=== PATIENT | female | born 1960 | race Hispanic/Latino ===

== ENCOUNTER 2019-01-27 16:29 | Emergency (ER) | payer OTHER, SELFPAY | END 2019-01-27 17:04 | disposition home or self-care (01) | LOC: ERS 16:29 | DX: K04.7 Periapical abscess without sinus (principal); K02.9 Dental caries, unspecified; F17.210 Nicotine dependence, cigarettes, uncomplicated | CPT/HCPCS: 99283 ==

== ENCOUNTER 2020-01-19 14:04 | Emergency (ER) | payer SELFPAY ==
[2020-01-19] MEDS ORDERED: HYDROcodone/Acetaminophen 5/325 mg Tablet ONE (17:05)
== END 2020-01-19 17:12 | disposition home or self-care (01) ==
LOC: ERS 14:04
DX: N61.0 Mastitis without abscess (principal); J43.9 Emphysema, unspecified; F17.210 Nicotine dependence, cigarettes, uncomplicated; Z79.899 Other long term (current) drug therapy
CPT/HCPCS: 99283

== ENCOUNTER 2020-08-05 04:14 | Inpatient (IN) | payer SELFPAY ==
[2020-08-05 04:47] LABS: Prothrombin Time 13.6 sec (12.0-14.7)
[2020-08-05] MEDS ORDERED: Nitroglycerin 100MG/250ML BOT 250 ML ONE (05:00)
[2020-08-05] MEDS ORDERED: Verapamil 5 MG/2 ML VIAL ONE (05:01)
[2020-08-05] MEDS ORDERED: Adenosine 6 MG/2 ML VIAL ONE (05:01)
[2020-08-05] MEDS ORDERED: Atropine Sulfate 1 mg/10 ml Syringe ONE (05:07)
[2020-08-05] MEDS ORDERED: Ondansetron PF 4 MG/2 ML Vial ONE (05:07)
[2020-08-05] MEDS ORDERED: Clopidogrel Bisulfate 300 MG TAB ONE (05:08)
[2020-08-05 05:09] LABS: #Basophils 0.1 thou/uL (0.0-0.2); #Eosinphils 0.2 thou/uL (0.0-0.7); #Lymphocytes 3.1 thou/uL (1.20-3.40); #Monocytes 0.8 thou/uL (0.11-0.59); #Neutrophils 6.9 thou/uL (1.40-6.50); %Basophils 1.3 % (0.0-1.0); %Eosinophils 1.8 % (0.0-10.0); %Monocytes 7.1 % (0.0-10.0); %Neutrophils 61.8 % (42.0-75.0); Burr Cells MODERATE= 6-15 cells (100X) (0-1/hpf); MDiff Complete? YES; Mean Corpuscular HGB CONC 33.5 g/dL (32.0-36.0); Mean Corpuscular Hemoglobin 32.7 pg (27.0-31.0); Mean Corpuscular Volume 97.4 fL (78.0-98.0); Platelet Count 143 thou/uL (130-400); Red Blood Cell (RBC) Count 5.22 mill/uL (4.20-5.40); White Blood Cell (WBC) Count 11.2 thou/uL (4.8-10.8)
[2020-08-05 05:21] LABS: PTT 196.3 sec (22.9-36.1)
[2020-08-05 05:34] LABS: ALT (SGPT) 112 U/L (8-55); AST (SGOT) 57 U/L (5-34); Albumin 3.8 g/dL (3.5-5.0); Alkaline Phosphatase 123 U/L (40-110); Anion Gap 19 mmol/L (10-20); BUN (Urea Nitrogen) 19 mg/dL (9.8-20.1); Bilirubin, Total 0.3 mg/dL (0.2-1.2); CK (CPK) 28 U/L (29-168); Calc. Creatinine Clearance 0 mL/min (70-130); Calcium 8.6 mg/dL (7.8-10.44); Carbon Dioxide 14 mmol/L (22-29); Chloride 109 mmol/L (98-107); Globulin 3.6 g/dL (2.4-3.5); Glucose 123 mg/dL (70-105); Potassium 3.8 mmol/L (3.5-5.1); Protein, Total 7.4 g/dL (6.0-8.3); Sodium 138 mmol/L (136-145)
[2020-08-05] MEDS ORDERED: Zolpidem Tartrate 5 MG TAB PO PRN (05:42)
[2020-08-05] MEDS ORDERED: Milk Of Magnesia 30 ML UDCUP PO PRN (05:42)
[2020-08-05] MEDS ORDERED: Acetaminophen/Codeine 30-300mg Tablet PO PRN (05:42)
[2020-08-05] MEDS ORDERED: Morphine 2 MG/ML VIAL SLOW IVP PRN (05:42)
[2020-08-05] MEDS ORDERED: Sodium Chloride 0.9% 1,000 ML IV SCH (05:45)
[2020-08-05 05:51] LABS: SARS-CoV-2 NAA Rapid Test Not Detected (NotDetected)
[2020-08-05 07:23] LABS: CKMB 18.3 ng/mL (0-6.6)
[2020-08-05 07:59] LABS: Troponin I 1.193 ng/mL (< 0.028)
--- NOTE | 2020-08-05 08:02 | RAD ---
RADIOGRAPH CHEST 1 VIEW: DATE: 08/05/2020 TIME: 4:25 AM HISTORY: 59-year-old female with dyspnea COMPARISON: 12/12/2015 FINDINGS: Currently no left support lines. Diffuse bilateral pulmonary vascular dilation, similar to prior. No consolidation or pneumothorax. The lateral costophrenic angles are sharp. Defibrillation paddle overlies right lung. IMPRESSION: 1) pulmonary venous congestion 2) no pneumothorax
[2020-08-05] MEDS ORDERED: Iopamidol 370 76% 100 ML VIAL ONE (11:52)
[2020-08-05] MEDS ORDERED: Iopamidol 370 76% 50 ML VIAL FS ONE (11:52)
[2020-08-05] MEDS: Lisinopril 2.5 MG TAB PO SCH (15:23)
[2020-08-05] MEDS: Clopidogrel Bisulfate 75 MG TAB PO SCH (15:24)
[2020-08-05] MEDS: Aspirin Chewable 81 MG TAB PO SCH (15:24)
[2020-08-05 15:48] VITALS: BMI 32.7
--- NOTE | 2020-08-05 17:54 | CON ---
DATE OF CONSULTATION: CHIEF COMPLAINT: Acute NV. HISTORY OF PRESENT ILLNESS: Ms. Magdaleno is a 59-year-old woman who recently presented to emergency room with acute onset chest pain. She states it occurred few hours prior to presenting to the emergency room. She was found to have ST-segment elevation noted inferiorly. PAST MEDICAL HISTORY: Tobacco abuse. No history of diabetes mellitus, hypertension, hyperlipidemia. Vascular headaches, nephrolithiasis, cholecystectomy, BTL, and a history positive for CAD. REVIEW OF SYSTEMS: A 10-point review of systems is reviewed as above, otherwise negative. PHYSICAL EXAMINATION: GENERAL: Patient is a pleasant woman who is in no acute distress. The patient appears their stated age. VITAL SIGNS: Blood pressure 118/70, pulse 80, respirations 20. NEUROLOGIC: The patient is alert and oriented x3 with no focal neurologic deficits. HEENT: Sclerae without icterus. Mouth has moist mucous membranes with normal pallor. NECK: No JVD. Carotid upstroke brisk. No bruits bilaterally. LUNGS: Clear to auscultation with unlabored respirations. BACK: No scoliosis or kyphosis. CARDIAC: Regular rate and rhythm with normal S1 and S2. No S3 or S4 noted. No significant rubs, murmurs, thrills, or gallops noted throughout the precordium. PMI is not displaced. There is no parasternal heave. ABDOMEN: Soft, nontender, nondistended. No peritoneal signs present. No hepatosplenomegaly. No abnormal striae. EXTREMITIES: 2+ femoral and 2+ dorsalis pedis pulses. No cyanosis, clubbing, or edema. SKIN: No gross abnormalities. PERTINENT LABORATORY DATA: Hemoglobin 17, hematocrit 50.8, platelet count of 143. IMPRESSION: Acute myocardial infarction. RECOMMENDATIONS: At this point, we would recommend urgent coronary angiography plus PCI. I discussed the procedure in full detail with Ms. Magdaleno. Risks include, but not limited to the following: , stroke, NV, need for emergency surgery, loss of limb, bleeding, and infection, as well as a reaction to the dye causing kidney failure and needing long-term dialysis. I also discussed the risks of PCI to include all of the above including coronary dissection and perforation in addition to acute stent thrombosis and restenosis. All questions about the procedure were answered. Given the above, the patient agreed to proceed with coronary angiography and possible PCI. All questions were answered. I also discussed drug coated versus nondrug coated stent placement. There were no contraindications to proceed if needed. Further recommendations will be pending the above. Job ID: [id number]
[2020-08-06 04:41] LABS: #Eosinphils 0.2 thou/uL (0.0-0.7); #Lymphocytes 2.6 thou/uL (1.20-3.40); #Monocytes 0.7 thou/uL (0.11-0.59); #Neutrophils 6.7 thou/uL (1.40-6.50); %Basophils 0.4 % (0.0-1.0); %Eosinophils 1.5 % (0.0-10.0); %Lymphocytes 25.3 % (21.0-51.0); %Neutrophils 65.9 % (42.0-75.0); Hemoglobin 15.1 g/dL (12.0-16.0); Mean Corpuscular HGB CONC 32.1 g/dL (32.0-36.0); Mean Corpuscular Hemoglobin 30.9 pg (27.0-31.0); Mean Corpuscular Volume 96.2 fL (78.0-98.0); Mean Platelet Volume 10.4 fL (7.4-10.4); Platelet Count 151 thou/uL (130-400); RBC Distribution Width 12.8 % (11.5-14.5); Red Blood Cell (RBC) Count 4.88 mill/uL (4.20-5.40); White Blood Cell (WBC) Count 10.1 thou/uL (4.8-10.8)
[2020-08-06 05:47] LABS: ALT (SGPT) 90 U/L (8-55); AST (SGOT) 68 U/L (5-34); Albumin 3.5 g/dL (3.5-5.0); Alkaline Phosphatase 116 U/L (40-110); Anion Gap 15 mmol/L (10-20); BUN (Urea Nitrogen) 17 mg/dL (9.8-20.1); Bilirubin, Total 0.6 mg/dL (0.2-1.2); Calc. Creatinine Clearance 110 mL/min (70-130); Calcium 8.5 mg/dL (7.8-10.44); Carbon Dioxide 17 mmol/L (22-29); Chloride 112 mmol/L (98-107); Globulin 3.4 g/dL (2.4-3.5); Glucose 78 mg/dL (70-105); Potassium 3.9 mmol/L (3.5-5.1); Protein, Total 6.9 g/dL (6.0-8.3); Sodium 140 mmol/L (136-145)
[2020-08-06 07:51] VITALS: TEMP 98.6
[2020-08-06] MEDS ORDERED: Carvedilol 3.125 MG TAB PO SCH (09:00)
[2020-08-06] MEDS ORDERED: Carvedilol 6.25 MG TAB PO SCH (09:00)
--- NOTE | 2020-08-06 09:26 | PDOC.CPN ---
- Subjective Date: 08/06/20 Time: 08:45 Interval history: No overnight events. Patient stable without complaints. Tele reviewed. - Review of Systems General: denies: fever/chills, weight/appetite/sleep changes, night sweats, fatigue Respiratory: denies: cough, congestion, shortness of breath, exercise intolerance Cardiovascular: denies: chest pain, palpitation, edema, paroxysmal nocturnal dyspnea, orthopnea Gastrointestinal: denies: nausea, vomiting, diarrhea, constipation, abd pain, GI bleeding Musculoskeletal: denies: pain, tenderness, stiffness, swelling, arthritis/arthralgias Neurological: denies: numbness, syncope, seizure, weakness - Objective Allergies/Adverse Reactions: Allergies Allergy/AdvReac Type Severity Reaction Status Date / Time No Known Drug Allergies Allergy Verified 08/05/20 15:53 Visit Medications: Current Medications Acetaminophen/Codeine Phosphate (Acetaminophen/Codeine 30-300mg Tablet) 1 tab PO Q4H PRN PRN Reason: Mild Pain (1-3) Aspirin (Aspirin Chewable 81 Mg Tab) 81 mg PO DAILY [facility] Last Admin: 08/05/20 15:24 Dose: Not Given Documented by: Atorvastatin Calcium (Atorvastatin Calcium 20 Mg Tab) 20 mg PO HS [facility] Carvedilol (Carvedilol 3.125 Mg Tab) 3.125 mg PO BID [facility] Clopidogrel Bisulfate (Clopidogrel Bisulfate 75 Mg Tab) 75 mg PO DAILY [facility] Last Admin: 08/05/20 15:24 Dose: Not Given Documented by: Influenza Virus Vaccine Quadrival (Flu Vacc [id number](6mos Up)/Pf 60 Mcg/0.5 Ml Syringe) 60 mcg IM .ONCE ONE Stop: 08/06/20 16:16 Lisinopril (Lisinopril 2.5 Mg Tab) 2.5 mg PO DAILY [facility] Last Admin: 08/05/20 15:23 Dose: Not Given Documented by: Magnesium Hydroxide (Milk Of Magnesia 30 Ml Udcup) 30 ml PO Q12H PRN PRN Reason: Constipation Morphine Sulfate (Morphine 2 Mg/Ml Vial) 2 mg SLOW IVP Q4H PRN PRN Reason: Moderate Chest Pain (4-6) Sodium Chloride (Flush - Normal Saline 10 Ml Syringe) 10 ml IVF Q12HR [place] Sodium Chloride (Flush - Normal Saline 10 Ml Syringe) 10 ml IVF PRN PRN PRN Reason: Saline Flush Zolpidem Tartrate (Zolpidem Tartrate 5 Mg Tab) 5 mg PO HSPRN PRN PRN Reason: Insomnia Vital Signs & Weight: Vital Signs Temp Pulse Resp BP Pulse Ox 08/06/20 07:47 98.6 F 81 16 122/66 94 L 08/06/20 04:00 98.8 F 86 18 118/58 L 95 08/06/20 00:00 79 Weight 179 lb - Physical Exam General: alert & oriented x3, appears well, no apparent distress HEENT: mucus membranes moist Neck: supple neck Cardiac: regular rate and rhythm, no murmur Lungs: normal breath sounds, no wheeze, rales, rhonchi Neuro: grossly intact Abdomen: soft, non-tender Extremities: no edema Skin: clear Musculoskeletal: no pain - Labs Result Diagrams: 08/06/20 04:12 08/06/20 04:12 Troponin/CKMB CK-MB (CK-2) 18.3 ng/mL (0-6.6) H* 08/05/20 06:37 Troponin I 7.910 ng/mL (< 0.028) H* 08/05/20 13:44 - Assessment/Plan Assessment/Plan: 1. s/p inferior STEMI 2. CAD s/p PCI/TE - RCA 3. Mild ICMO (EF 40% on LVgram) Will add statin. Continue walking. Check lipids and repeat trop to trend. ECHO today. Possible discharge later this afternoon if she remains stable.
[2020-08-06] MEDS: Lisinopril 2.5 MG TAB PO SCH (09:46)
[2020-08-06] MEDS: Clopidogrel Bisulfate 75 MG TAB PO SCH (09:47)
[2020-08-06] MEDS: Aspirin Chewable 81 MG TAB PO SCH (09:47)
[2020-08-06 12:06] LABS: Cardiac Risk 5.8 (Less than 4.5)
[2020-08-06 12:24] LABS: Critical Call Chem Troponin I RESULT DECREASING
[2020-08-06 12:25] LABS: Troponin I 4.859 ng/mL (< 0.028)
[2020-08-06] MEDS ORDERED: FLU VACC QS2020-21(6MOS UP)/PF 60 MCG/0.5 ML SYRINGE IM ONE (16:15)
[2020-08-06 16:53] VITALS: BP 137/74
--- NOTE | 2020-08-06 17:53 | DIS ---
DATE OF ADMISSION: 08/05/2020 DATE OF DISCHARGE: 08/06/2020 PRIMARY DIAGNOSIS: Acute myocardial infarction. PROCEDURE PERFORMED: Coronary angiography with stent placement to the distal right coronary artery. HOSPITAL COURSE: Ms. Magdaleno is a very pleasant 59-year-old woman, who recently presented with acute onset chest pain. She was found to have ST-segment elevation. She underwent urgent coronary angiography and was found to have a 99% stenosis of the distal right coronary artery into the RPL and PDA. She underwent successful stent placement into the PDA. Prior to stent implantation, the ostium of the RPL was ballooned. She did very well in the post procedure. No recurrent episodes of chest pain. On the second day, the patient was ambulating without assistance. No recurrent episodes of chest pain. DISCHARGE MEDICATIONS: Include; 1. Aspirin 81 q.a.m. 2. Plavix 75 daily. 3. Coreg 3.125 one p.o. b.i.d. 4. Lisinopril 2.5 daily. 5. Lipitor 20 mg daily. FOLLOWUP: Follow up with Dr. Nye in 1 to 2 weeks. CONDITION ON DISCHARGE: Stable. Job ID: [id number]
[2020-08-06] MEDS ORDERED: Atorvastatin Calcium 20 MG TAB PO SCH (21:00)
== END 2020-08-06 18:27 | disposition home or self-care (01) | DRG 247 ==
LOC: ERS 04:14 → CCL 04:40 → 2NO 15:55
PROVIDERS: ADMIT Internal Medicine Cardiovascular Disease; ATTEND Internal Medicine Cardiovascular Disease
PROC: 027034Z Dilation of Coronary Artery, One Artery with Drug-eluting Intraluminal Device, Percutaneous Approach (ICD-10-PCS; principal; 2020-08-05)
PROC: 4A023N7 Measurement of Cardiac Sampling and Pressure, Left Heart, Percutaneous Approach (ICD-10-PCS; 2020-08-05)
PROC: B2111ZZ Fluoroscopy of Multiple Coronary Arteries using Low Osmolar Contrast (ICD-10-PCS; 2020-08-05)
PROC: B2151ZZ Fluoroscopy of Left Heart using Low Osmolar Contrast (ICD-10-PCS; 2020-08-05)
DX: I21.19 ST elevation (STEMI) myocardial infarction involving other coronary artery of inferior wall (principal); Z20.822 Contact with and (suspected) exposure to COVID-19; Z28.21 Immunization not carried out because of patient refusal; I25.10 Atherosclerotic heart disease of native coronary artery without angina pectoris; J43.9 Emphysema, unspecified; F17.210 Nicotine dependence, cigarettes, uncomplicated; I25.5 Ischemic cardiomyopathy; Z90.49 Acquired absence of other specified parts of digestive tract; Z98.51 Tubal ligation status
CPT/HCPCS: 36415; 71045; 76942; 80053; 80061; 82550; 82553; 84484; 85025; 85347; 85610; 85730; 86850; 86900; 86901; 92928; 93005; 93010; 93306; 93458; 93798; C1874; C9600; J0153; J0461; J1644; J2405; Q9967; U0002

== ENCOUNTER 2021-06-19 19:53 | Emergency (ER) | payer SELFPAY | END 2021-06-19 21:09 | disposition home or self-care (01) | LOC: ERS 19:53 | DX: K04.7 Periapical abscess without sinus (principal); J45.909 Unspecified asthma, uncomplicated; J43.9 Emphysema, unspecified; F17.210 Nicotine dependence, cigarettes, uncomplicated | CPT/HCPCS: 99282 ==

== ENCOUNTER 2021-07-11 10:28 | Emergency (ER) | payer SELFPAY ==
[2021-07-11] MEDS ORDERED: Ketorolac Tromethamine 30 MG/ML VIAL ONE (11:17)
[2021-07-11 11:45] LABS: #Basophils 0.1 thou/uL (0.0-0.2); #Eosinphils 0.2 thou/uL (0.0-0.7); #Monocytes 0.7 thou/uL (0.11-0.59); #Neutrophils 5.9 thou/uL (1.40-6.50); %Basophils 1.2 % (0.0-1.0); %Eosinophils 2.4 % (0.0-10.0); %Lymphocytes 22.3 % (21.0-51.0); %Monocytes 7.4 % (0.0-10.0); %Neutrophils 66.8 % (42.0-75.0); Hemoglobin 16.4 g/dL (12.0-16.0); Mean Corpuscular HGB CONC 34.1 g/dL (32.0-36.0); Mean Corpuscular Hemoglobin 32.8 pg (27.0-31.0); Mean Corpuscular Volume 96.1 fL (78.0-98.0); Mean Platelet Volume 9.6 fL (7.4-10.4); Platelet Count 191 thou/uL (130-400); RBC Distribution Width 12.9 % (11.5-14.5); Red Blood Cell (RBC) Count 5.01 mill/uL (4.20-5.40); White Blood Cell (WBC) Count 8.8 thou/uL (4.8-10.8)
[2021-07-11 12:10] LABS: ALT (SGPT) 33 U/L (8-55); AST (SGOT) 22 U/L (5-34); Albumin 3.9 g/dL (3.4-4.8); Alkaline Phosphatase 132 U/L (40-110); Anion Gap 13 mmol/L (10-20); BUN (Urea Nitrogen) 20 mg/dL (9.8-20.1); Bilirubin, Total 0.6 mg/dL (0.2-1.2); Calc. Creatinine Clearance 0 mL/min (70-130); Calcium 10.2 mg/dL (7.8-10.44); Carbon Dioxide 20 mmol/L (23-31); Chloride 110 mmol/L (98-107); Globulin 3.7 g/dL (2.4-3.5); Glucose 104 mg/dL (80-115); Potassium 3.6 mmol/L (3.5-5.1); Protein, Total 7.6 g/dL (5.8-8.1); Sodium 139 mmol/L (136-145)
[2021-07-11 13:37] LABS: Bilirubin Negative (Negative); Blood, Urine Negative (Negative); Clarity Turbid (Clear); Glucose, Urine (Dipstick) Normal (Negative); Ketone, Urine Negative (Negative); Leukocyte Negative Leu/uL (Negative); Nitrite Negative (Negative); Protein, Urine (Dipstick) Negative (Neg-Trace); Specific Gravity, Urine 1.017 (1.002-1.036); Urobilinogen Normal mg/dL (Less than 2)
== END 2021-07-11 15:21 | disposition home or self-care (01) ==
LOC: ERS 10:28
DX: M54.50 Low back pain, unspecified (principal); N83.8 Other noninflammatory disorders of ovary, fallopian tube and broad ligament; J43.9 Emphysema, unspecified; F17.210 Nicotine dependence, cigarettes, uncomplicated
CPT/HCPCS: 74176; 80053; 81003; 85025; 96374; J1885

== ENCOUNTER 2022-07-24 17:48 | Emergency (ER) | payer SELFPAY ==
[2022-07-24 18:30] LABS: #Eosinphils 0.1 thou/uL (0.0-0.7); #Lymphocytes 1.6 thou/uL (1.20-3.40); #Neutrophils 7.5 thou/uL (1.40-6.50); %Basophils 0.4 % (0.0-1.0); %Eosinophils 1.2 % (0.0-10.0); %Lymphocytes 15.7 % (21.0-51.0); %Monocytes 9.5 % (0.0-10.0); %Neutrophils 73.3 % (42.0-75.0); Hemoglobin 16.2 g/dL (12.0-16.0); Mean Corpuscular HGB CONC 34.3 g/dL (32.0-36.0); Mean Corpuscular Hemoglobin 33.9 pg (27.0-31.0); Mean Corpuscular Volume 98.7 fl (78.0-98.0); Platelet Count 172 10x3/uL (130-400); RBC Distribution Width 12.9 % (11.5-14.5); Red Blood Cell (RBC) Count 4.79 mill/uL (4.20-5.40); White Blood Cell (WBC) Count 10.3 10x3/uL (4.8-10.8)
[2022-07-24] MEDS ORDERED: Ketorolac Tromethamine 30 MG/ML VIAL ONE (18:47)
[2022-07-24 18:50] LABS: ALT (SGPT) 21 U/L (8-55); AST (SGOT) 17 U/L (5-34); Albumin 3.9 g/dL (3.4-4.8); Alkaline Phosphatase 127 U/L (40-110); Anion Gap 14 mmol/L (10-20); BUN (Urea Nitrogen) 13 mg/dL (9.8-20.1); Bilirubin, Total 0.6 mg/dL (0.2-1.2); Calc. Creatinine Clearance 0 mL/min (70-130); Calcium 9.6 mg/dL (7.8-10.44); Carbon Dioxide 20 mmol/L (23-31); Chloride 111 mmol/L (98-107); Estimated GFR 93; Globulin 3.2 g/dL (2.4-3.5); Glucose 78 mg/dL (80-115); Potassium 3.7 mmol/L (3.5-5.1); Protein, Total 7.1 g/dL (5.8-8.1); Sodium 141 mmol/L (136-145)
[2022-07-24 20:12] LABS: Bacteria/HPF 3+ HPF (None Seen); Bilirubin Negative (Negative); Blood, Urine 3+ (Negative); Clarity Turbid (Clear); Glucose, Urine (Dipstick) Normal (Negative); Ketone, Urine Negative (Negative); Leukocyte 75 Leu/uL (Negative); Nitrite Negative (Negative); Protein, Urine (Dipstick) 70 mg/dL (Neg-Trace); RBC/HPF Greater than 50 HPF (0-3); Specific Gravity, Urine 1.009 (1.002-1.036); Urobilinogen Normal mg/dL (Less than 2); WBC/HPF 21-50 HPF (0-3); pH, Urine 6.5 (5.0-9.0)
== END 2022-07-24 20:47 | disposition home or self-care (01) ==
LOC: ERS 17:48
DX: R31.9 Hematuria, unspecified (principal); N83.8 Other noninflammatory disorders of ovary, fallopian tube and broad ligament; N39.0 Urinary tract infection, site not specified; F17.210 Nicotine dependence, cigarettes, uncomplicated
CPT/HCPCS: 36415; 74176; 80053; 81003; 81015; 85025; 96372; J1885

== ENCOUNTER 2022-08-11 19:31 | Emergency (ER) | payer SELFPAY ==
[2022-08-11] MEDS ORDERED: methylPREDNISolone Sod Succ/PF 125 MG/2 ML VIAL ONE (20:03)
[2022-08-11] MEDS ORDERED: Aspirin 325 MG TAB ONE (20:03)
[2022-08-11] MEDS ORDERED: Ipratropium/Albuterol 3 ML NEB ONE (20:03)
[2022-08-11 20:33] LABS: #Eosinphils 0.1 thou/uL (0.0-0.7); #Lymphocytes 1.8 thou/uL (1.20-3.40); #Monocytes 0.8 thou/uL (0.11-0.59); #Neutrophils 6.2 thou/uL (1.40-6.50); %Basophils 0.4 % (0.0-1.0); %Eosinophils 1.6 % (0.0-10.0); %Lymphocytes 20.1 % (21.0-51.0); %Monocytes 9.3 % (0.0-10.0); %Neutrophils 68.6 % (42.0-75.0); Hemoglobin 15.8 g/dL (12.0-16.0); Mean Corpuscular HGB CONC 34.1 g/dL (32.0-36.0); Mean Corpuscular Hemoglobin 33.7 pg (27.0-31.0); Mean Platelet Volume 9.8 fL (7.4-10.4); Platelet Count 185 10x3/uL (130-400); RBC Distribution Width 12.9 % (11.5-14.5); White Blood Cell (WBC) Count 9.1 10x3/uL (4.8-10.8)
[2022-08-11 20:56] LABS: ALT (SGPT) 27 U/L (8-55); AST (SGOT) 19 U/L (5-34); Albumin 3.9 g/dL (3.4-4.8); Alkaline Phosphatase 132 U/L (40-110); Anion Gap 11 mmol/L (10-20); BUN (Urea Nitrogen) 24 mg/dL (9.8-20.1); Bilirubin, Total 0.3 mg/dL (0.2-1.2); Calc. Creatinine Clearance 0 mL/min (70-130); Calcium 9.4 mg/dL (7.8-10.44); Carbon Dioxide 20 mmol/L (23-31); Chloride 109 mmol/L (98-107); Estimated GFR 46; Globulin 3.5 g/dL (2.4-3.5); Glucose 118 mg/dL (80-115); Potassium 4.3 mmol/L (3.5-5.1); Protein, Total 7.4 g/dL (5.8-8.1); Sodium 136 mmol/L (136-145)
== END 2022-08-11 21:44 | disposition home or self-care (01) ==
LOC: ERS 19:31
DX: J44.1 Chronic obstructive pulmonary disease with (acute) exacerbation (principal); F17.210 Nicotine dependence, cigarettes, uncomplicated; Z79.899 Other long term (current) drug therapy
CPT/HCPCS: 36415; 71045; 80053; 83880; 84484; 85025; 93005; 96374; J2930; J7620